=== PATIENT | female | born 1970 | race African-American/Black ===

== ENCOUNTER 2016-07-24 17:19 | Emergency (ER) | payer OTHER ==
[~2016-07-24] VITALS: Ht 160 cm; Wt 86.2 kg
[2016-07-24] MEDS ORDERED: NS 1,000 ML IV ONE (18:15)
[2016-07-24 18:45] LABS: BASO % 0.7 % (0.0-1.0); EOS # 0.3 K/mm3 (0.0-0.50); EOS % 5.2 % (0.0-3.0); LARGE UNSTAINED CELL # 0.2 K/mm3 (0.0-0.4); LYMPH # 1.7 K/mm3 (1.5-4.5); LYMPH % 31.5 % (24.0-44.0); MEAN CORPUSCULAR HEMOGLOBIN 29.3 pg (27.0-33.0); MEAN CORPUSCULAR VOLUME 91.7 fl (80.0-96.0); MONO # 0.3 K/mm3 (0.0-0.8); MONO % 4.9 % (0.0-5.0); NEUTROPHILS % 54.7 % (36.0-66.0); PLATELET COUNT, AUTOMATED 315 k/mm3 (150-450); RED CELL DISTRIBUTION WIDTH 15.2 % (11.5-14.5); WHITE BLOOD COUNT 5.4 K/mm3 (4.0-10.0)
--- NOTE | 2016-07-24 20:30 | REPUSA ---
CLINICAL HISTORY: Heavy bleeding after endometrial biopsy on 07/17/2016. TECHNIQUE: High resolution examination consisting of transabdominal and transvaginal ultrasound perf ormed. FINDINGS: Uterine size is 14.9 x 6.7 x 8.9 cm. AP endometrial thickness is not seen due to penetration limitation/fibroids. Right ovary measures 2.2 x 1.7 x 1.4 cm. Unable to do Doppler due to bowel gas and beam penetration limitation. Left ovary is not visualized. IMPRESSION: Exam limited due to difficulty penetrating fibroids. Endometrial stripe and right ovary are not well seen. Markedly enlarged uterus. Multiple fibroids, largest measures 3.8 x 2.9 x 2.5 cm. Thank you for your kind referral of this patient. We appreciate the opportunity to participate in thi s patient's care.
[2016-07-24 20:50] VITALS: BP 149/88
== END 2016-07-24 21:19 | disposition home or self-care (01) ==
LOC: M ED 17:59
DX: D25.9 Leiomyoma of uterus, unspecified (principal); N92.1 Excessive and frequent menstruation with irregular cycle

== ENCOUNTER 2017-06-04 05:37 | Inpatient (IN) | payer OTHER ==
[2017-06-04 06:27] LABS: HEMATOCRIT 37.4 % (36.0-47.0); HEMOGLOBIN 12.2 g/dl (12.0-16.0); MEAN CORPUSCULAR HGB CONC 32.6 g/dl (32.0-36.5); PLATELET COUNT, AUTOMATED 340 10^3/uL (150-450); RED CELL DISTRIBUTION WIDTH 13.3 % (11.5-14.5); WHITE BLOOD COUNT 6.3 10^3/uL (4.0-10.0)
[2017-06-04] MEDS: LR 1,000 ML IV ×4 (06:40→20:41)
[2017-06-04 06:43] LABS: CONTROL LINE HCG INT CTR LINE PRESENT; HCG, SERUM QUALITATIVE NEGATIVE (NEGATIVE)
[2017-06-04] MEDS ORDERED: BUPIVACAINE LIPOSOME/PF 1.3% 20 ML VIAL (13.3MG/ML)(EXPAREL) As Ordered (07:08)
[2017-06-04] MEDS ORDERED: MIDAZOLAM INJ 2 MG/2 ML VIAL (J2250) As Ordered (07:14)
[2017-06-04] MEDS ORDERED: fentaNYL 250 MCG/5 ML INJECTION (J3010) As Ordered (07:14)
[2017-06-04] MEDS ORDERED: PROPOFOL 200 MG/20 ML VIAL As Ordered (07:14)
[2017-06-04] MEDS ORDERED: LIDOCAINE 2% INJ 100 MG/5 ML SDV (FOR ANES.) As Ordered (07:14)
[2017-06-04] MEDS ORDERED: ROCURONIUM BROMIDE 50 MG/5 ML VIAL As Ordered (07:14)
[2017-06-04] MEDS ORDERED: GLYCOPYRROLATE INJ 0.2 MG/ML 2 ML VIAL As Ordered (07:53)
[2017-06-04] MEDS ORDERED: ONDANSETRON 4MG/2ML VIAL (J2405) As Ordered (07:53)
[2017-06-04] MEDS ORDERED: NEOSTIGMINE 10 MG/10 ML VIAL (J2710) As Ordered (07:53)
[2017-06-04] MEDS ORDERED: HYDROmorphone HCL 2 MG/ML 1ML VIAL (J1170) As Ordered (07:53)
[2017-06-04] MEDS ORDERED: dexameTHASONE 4 MG/ML 1ML VIAL (J1100) As Ordered (07:53)
[2017-06-04] MEDS ORDERED: KETOROLAC 60 MG/2 ML VIAL (J1885) As Ordered (07:53)
[2017-06-04] MEDS ORDERED: ePHEDrine SULFATE 25 MG/5 ML(5MG/ML) SYRINGE As Ordered (07:57)
[2017-06-04] MEDS ORDERED: PHENYLephrine HCL 500 MCG/5 ML (100MCG/ML) SYRINGE (J2370) As Ordered (08:15)
[2017-06-04] MEDS: METHYLENE BLUE 0.5% (5MG/ML) 10 ML AMP (PROVAYBLUE)(Q9968 PER 1MG) As Ordered (09:21)
[2017-06-04] MEDS ORDERED: ESMOLOL INJ 100MG/10ML VIAL As Ordered (09:26)
[2017-06-04] MEDS ORDERED: SEVOFLURANE INHAL SOLN 250 ML BTL As Ordered (09:28)
[2017-06-04] MEDS ORDERED: fentaNYL 100 MCG/2 ML INJECTION (J3010) As Ordered (10:49)
[2017-06-04] MEDS: ceFAZolin 2 GM/D5W 50 ML IV BAG (J0690 PER 500MG) As Ordered (11:00)
[2017-06-04] MEDS ORDERED: METOCLOPRAMIDE INJ 10MG/2ML VIAL (J2765) IV (12:15)
[2017-06-04] MEDS ORDERED: fentaNYL 100 MCG/2 ML INJECTION (J3010) IV (12:15)
[2017-06-04] MEDS ORDERED: ONDANSETRON 4MG/2ML VIAL (J2405) IV ×2 (12:15→13:15)
[2017-06-04 12:23] LABS: HEMATOCRIT 28.7 % (36.0-47.0); HEMOGLOBIN 9.3 g/dl (12.0-16.0); MEAN CORPUSCULAR HEMOGLOBIN 29.5 pg (27.0-33.0); MEAN CORPUSCULAR HGB CONC 32.4 g/dl (32.0-36.5); MEAN CORPUSCULAR VOLUME 91.1 fl (80.0-96.0); PLATELET COUNT, AUTOMATED 272 10^3/uL (150-450); RED BLOOD COUNT 3.15 10^6/uL (4.00-5.40); RED CELL DISTRIBUTION WIDTH 13.4 % (11.5-14.5); WHITE BLOOD COUNT 10.8 10^3/uL (4.0-10.0)
[2017-06-04] MEDS: PERCOCET 5MG/325MG TAB PO ×3 (13:12→22:02)
[2017-06-04] MEDS ORDERED: PERCOCET 5MG/325MG TAB PO (13:15)
[2017-06-04] MEDS ORDERED: PROMETHAZINE 25 MG TAB PO (13:15)
[2017-06-04] MEDS: KETOROLAC 30 MG/ML VIAL (J1885) IV ×2 (14:41→20:41)
[2017-06-04] MEDS: DOCUSATE SODIUM 100 MG CAP PO (20:40)
[2017-06-05] MEDS: MORPHINE 4 MG/ML 1ML VIAL (J2270) IV (01:17)
[2017-06-05] MEDS: KETOROLAC 30 MG/ML VIAL (J1885) IV ×2 (02:39→09:23)
[2017-06-05] MEDS: LR 1,000 ML IV ×2 (05:28→17:27)
[2017-06-05] MEDS: PERCOCET 5MG/325MG TAB PO ×4 (05:33→21:34)
[2017-06-05 07:14] LABS: BASO % 0.1 % (0.0-1.0); HEMATOCRIT 21.9 % (36.0-47.0); IMMATURE GRANULOCYTE % 0.3 % (0-3.0); LYMPH # 1.3 10^3/uL (1.5-4.5); LYMPH % 14.7 % (24.0-44.0); MEAN CORPUSCULAR HEMOGLOBIN 29.9 pg (27.0-33.0); MEAN CORPUSCULAR HGB CONC 32.9 g/dl (32.0-36.5); MEAN CORPUSCULAR VOLUME 90.9 fl (80.0-96.0); MONO # 0.7 10^3/uL (0.0-0.8); MONO % 7.9 % (0.0-5.0); PLATELET COUNT, AUTOMATED 226 10^3/uL (150-450); RED BLOOD COUNT 2.41 10^6/uL (4.00-5.40); RED CELL DISTRIBUTION WIDTH 13.4 % (11.5-14.5); WHITE BLOOD COUNT 9.1 10^3/uL (4.0-10.0)
[2017-06-05 07:20] LABS: HEMOGLOBIN 7.2 g/dl (12.0-16.0)
[2017-06-05] MEDS: DOCUSATE SODIUM 100 MG CAP PO ×2 (09:23→20:04)
[2017-06-05] MEDS: NS 1,000 ML IV (12:25)
[2017-06-05] MEDS: diphenhydrAMINE 25 MG CAP PO (12:26)
[2017-06-05 14:44] LABS: IMMEDIATE SPIN CROSSMATCH 1 2
[2017-06-05] MEDS: IBUPROFEN 800 MG TAB PO (17:27)
[2017-06-05 20:08] LABS: HEMATOCRIT 28.4 % (36.0-47.0); HEMOGLOBIN 9.2 g/dl (12.0-16.0); MEAN CORPUSCULAR HEMOGLOBIN 29.4 pg (27.0-33.0); MEAN CORPUSCULAR HGB CONC 32.4 g/dl (32.0-36.5); MEAN CORPUSCULAR VOLUME 90.7 fl (80.0-96.0); PLATELET COUNT, AUTOMATED 197 10^3/uL (150-450); RED BLOOD COUNT 3.13 10^6/uL (4.00-5.40); RED CELL DISTRIBUTION WIDTH 14.3 % (11.5-14.5); WHITE BLOOD COUNT 8.1 10^3/uL (4.0-10.0)
[2017-06-06] MEDS: LR 1,000 ML IV ×2 (00:44→06:17)
[2017-06-06] MEDS: IBUPROFEN 800 MG TAB PO ×3 (00:44→16:32)
[2017-06-06] MEDS: PERCOCET 5MG/325MG TAB PO ×3 (05:45→17:13)
[2017-06-06] MEDS: DOCUSATE SODIUM 100 MG CAP PO (08:01)
== END 2017-06-06 18:55 | disposition home or self-care (01) | DRG 743 ==
LOC: M OR 05:37 → M PED 13:48
PROC: 0UT90ZZ Resection of Uterus, Open Approach (ICD-10-PCS; principal; 2017-06-04 07:30)
PROC: 0UTC0ZZ Resection of Cervix, Open Approach (ICD-10-PCS; 2017-06-04 07:30)
PROC: 0UT00ZZ Resection of Right Ovary, Open Approach (ICD-10-PCS; 2017-06-04 07:30)
PROC: 0UT70ZZ Resection of Bilateral Fallopian Tubes, Open Approach (ICD-10-PCS; 2017-06-04 07:30)
PROC: 30253N1 (ICD-10-PCS; 2017-06-04 07:30)
DX: D25.1 Intramural leiomyoma of uterus (principal); N92.1 Excessive and frequent menstruation with irregular cycle; D64.9 Anemia, unspecified

== ENCOUNTER → 2017-08-01 | Outpatient (REF) | payer OTHER ==
[2017-08-01 13:30] LABS: APPEARANCE, URINE CLEAR (CLEAR); BACTERIA, URINE AUTO NEGATIVE (NEGATIVE); BILIRUBIN, URINE AUTO NEGATIVE (NEGATIVE); BLOOD, URINE BLOOD NEGATIVE (NEGATIVE); COLOR, URINE STRAW (YELLOW); GLUCOSE, URINE (UA) AUTO NEGATIVE (NEGATIVE); KETONE, URINE AUTO NEGATIVE (NEGATIVE); LEUKOCYTE ESTERASE, URINE AUTO NEGATIVE (NEGATIVE); NITRITE, URINE AUTO NEGATIVE (NEGATIVE); PROTEIN, URINE AUTO NEGATIVE (NEGATIVE); RBC, URINE AUTO 0 /HPF (0-3); SPECIFIC GRAVITY URINE AUTO 1.009 (1.002-1.035); SQUAMOUS EPITHELIAL CELL UR AU 0 /HPF (0-6); UROBILINOGEN, URINE AUTO 0.2 mg/dL (0.0-2.0); WBC, URINE AUTO 0 /HPF (0-3)
== END ==
LOC: M SMT 13:02
DX: R32 Unspecified urinary incontinence (principal)
CPT/HCPCS: 81001

== ENCOUNTER 2017-09-23 13:28 | Day surgery (SDC) | payer OTHER ==
[2017-09-23] MEDS ORDERED: LR 1,000 ML IV ×2 (13:45→18:15)
[2017-09-23] MEDS ORDERED: MIDAZOLAM INJ 2 MG/2 ML VIAL (J2250) As Ordered (16:48)
[2017-09-23] MEDS ORDERED: fentaNYL 100 MCG/2 ML INJECTION (J3010) As Ordered (16:49)
[2017-09-23] MEDS ORDERED: PROPOFOL 200 MG/20 ML VIAL As Ordered (16:49)
[2017-09-23] MEDS: CONRAY-60 60% 50ML VIAL (Q9961) As Ordered (17:26)
[2017-09-23] MEDS ORDERED: dexameTHASONE 4 MG/ML 1ML VIAL (J1100) As Ordered (17:27)
[2017-09-23] MEDS ORDERED: ONDANSETRON 4MG/2ML VIAL (J2405) As Ordered (17:27)
[2017-09-23] MEDS ORDERED: METOCLOPRAMIDE INJ 10MG/2ML VIAL (J2765) As Ordered (17:27)
[2017-09-23] MEDS ORDERED: fentaNYL 100 MCG/2 ML INJECTION (J3010) IV (18:15)
[2017-09-23] MEDS ORDERED: METOCLOPRAMIDE INJ 10MG/2ML VIAL (J2765) IV (18:15)
[2017-09-23] MEDS ORDERED: MEPERIDINE INJ 25 MG/ML VIAL (J2175) IV (18:15)
[2017-09-23] MEDS ORDERED: PERCOCET 5MG/325MG TAB PO (18:15)
[2017-09-23] MEDS ORDERED: ONDANSETRON 4MG/2ML VIAL (J2405) IV (18:15)
== END 2017-09-23 19:25 | disposition home or self-care (01) ==
LOC: M SDC 13:28
DX: N82.0 Vesicovaginal fistula (principal); K21.9 Gastro-esophageal reflux disease without esophagitis; Z79.899 Other long term (current) drug therapy
CPT/HCPCS: 52005

== ENCOUNTER 2017-11-11 06:16 | Inpatient (IN) | payer OTHER ==
[~2017-11-11 06:16] MED LIST: LIDOCAINE 1% MDV 20ML VIAL SQ
[2017-11-11] MEDS ORDERED: LR 1,000 ML IV (06:30)
[2017-11-11] MEDS ORDERED: fentaNYL 250 MCG/5 ML INJECTION (J3010) As Ordered (07:09)
[2017-11-11] MEDS: CONRAY-60 60% 50ML VIAL (Q9961) As Ordered (07:10)
[2017-11-11] MEDS ORDERED: MIDAZOLAM INJ 2 MG/2 ML VIAL (J2250) As Ordered (07:10)
[2017-11-11] MEDS ORDERED: LIDOCAINE 2% INJ 100 MG/5 ML SDV (FOR ANES.) As Ordered (07:11)
[2017-11-11] MEDS ORDERED: ROCURONIUM BROMIDE 50 MG/5 ML VIAL As Ordered ×2 (07:11→08:53)
[2017-11-11] MEDS ORDERED: PROPOFOL 200 MG/20 ML VIAL As Ordered ×2 (07:11→10:11)
[2017-11-11] MEDS ORDERED: ONDANSETRON 4MG/2ML VIAL (J2405) As Ordered ×2 (07:14→11:02)
[2017-11-11] MEDS ORDERED: dexameTHASONE 4 MG/ML 1ML VIAL (J1100) As Ordered ×2 (07:14)
[2017-11-11] MEDS ORDERED: HYDROmorphone HCL 2 MG/ML 1ML VIAL (J1170) As Ordered (08:11)
[2017-11-11] MEDS ORDERED: GLYCOPYRROLATE INJ 0.2 MG/ML 2 ML VIAL As Ordered (09:26)
[2017-11-11] MEDS ORDERED: NEOSTIGMINE 10 MG/10 ML VIAL (J2710) As Ordered (09:26)
[2017-11-11] MEDS: METHYLENE BLUE 0.5% (5MG/ML) 10 ML AMP (PROVAYBLUE)(Q9968 PER 1MG) As Ordered (09:32)
[2017-11-11] MEDS: ESTROGENS VAGINAL CREAM 30GM As Ordered (10:06)
[2017-11-11] MEDS: LR 1,000 ML IV (10:36)
[2017-11-11] MEDS ORDERED: fentaNYL 100 MCG/2 ML INJECTION (J3010) As Ordered (11:03)
[2017-11-11] MEDS: fentaNYL 100 MCG/2 ML INJECTION (J3010) IV ×4 (11:03→11:18)
[2017-11-11] MEDS: PERCOCET 5MG/325MG TAB PO ×2 (11:03→11:33)
[2017-11-11] MEDS ORDERED: PERCOCET 5MG/325MG TAB As Ordered (11:03)
[2017-11-11] MEDS: ONDANSETRON 4MG/2ML VIAL (J2405) IV (11:03)
[2017-11-11] MEDS ORDERED: MORPHINE 4 MG/ML 1ML VIAL/SYRINGE (J2270) IV (11:15)
[2017-11-11] MEDS ORDERED: ONDANSETRON 4MG/2ML VIAL (J2405) IV (11:15)
[2017-11-11] MEDS ORDERED: METOCLOPRAMIDE INJ 10MG/2ML VIAL (J2765) IV (11:15)
[2017-11-11] MEDS ORDERED: MEPERIDINE INJ 25 MG/ML VIAL (J2175) IV (11:15)
[2017-11-11 11:36] LABS: HEMATOCRIT 37.2 % (36.0-47.0); HEMOGLOBIN 12.1 g/dl (12.0-15.5); MEAN CORPUSCULAR HEMOGLOBIN 28.9 pg (27.0-33.0); MEAN CORPUSCULAR HGB CONC 32.5 g/dl (32.0-36.5); PLATELET COUNT, AUTOMATED 286 10^3/uL (150-450); RED BLOOD COUNT 4.18 10^6/uL (4.00-5.40); RED CELL DISTRIBUTION WIDTH 15.2 % (11.5-14.5); WHITE BLOOD COUNT 9.7 10^3/uL (4.0-10.0)
[2017-11-11 11:50] LABS: ANION GAP 6 MEQ/L (8-16); BLOOD UREA NITROGEN 12 MG/DL (7-18); CALCIUM LEVEL 8.7 MG/DL (8.5-10.1); CARBON DIOXIDE LEVEL 29 MEQ/L (21-32); CHLORIDE LEVEL 106 MEQ/L (98-107); CREATININE FOR GFR 1.06 MG/DL (0.55-1.30); GLOMERULAR FILTRATION RATE > 60.0 (>58); GLUCOSE, FASTING 168 MG/DL (70-100); POTASSIUM SERUM 4.3 MEQ/L (3.5-5.1); SODIUM LEVEL 141 MEQ/L (136-145)
[2017-11-11] MEDS: PANTOPRAZOLE 40MG INJ (PROTONIX) (C9113) IV (12:48)
[2017-11-11] MEDS: KETOROLAC 30 MG/ML VIAL (J1885) IV ×2 (12:49→20:47)
[2017-11-11] MEDS: KCL 20MEQ IN D5/0.45NS 1000ML 1,000 ML IV ×2 (12:49→20:46)
[2017-11-11] MEDS: ACETAMINOPHEN 650MG ER TAB (TYLENOL ARTHRITIS) PO ×2 (14:26→22:41)
[2017-11-11] MEDS: oxyCODONE 5MG TAB PO (18:06)
[2017-11-11] MEDS: CIPROFLOXACIN 500 MG TAB PO (18:07)
[2017-11-12] MEDS: oxyCODONE 5MG TAB PO ×4 (01:51→21:57)
[2017-11-12] MEDS: KETOROLAC 30 MG/ML VIAL (J1885) IV (04:29)
[2017-11-12] MEDS: CIPROFLOXACIN 500 MG TAB PO ×2 (05:45→17:34)
[2017-11-12] MEDS: ACETAMINOPHEN 650MG ER TAB (TYLENOL ARTHRITIS) PO ×3 (05:45→21:56)
[2017-11-12 06:58] LABS: HEMOGLOBIN 10.2 g/dl (12.0-15.5); MEAN CORPUSCULAR HEMOGLOBIN 28.9 pg (27.0-33.0); MEAN CORPUSCULAR HGB CONC 32.9 g/dl (32.0-36.5); MEAN CORPUSCULAR VOLUME 87.8 fl (80.0-96.0); PLATELET COUNT, AUTOMATED 245 10^3/uL (150-450); RED BLOOD COUNT 3.53 10^6/uL (4.00-5.40); RED CELL DISTRIBUTION WIDTH 15.2 % (11.5-14.5); WHITE BLOOD COUNT 8.7 10^3/uL (4.0-10.0)
[2017-11-12 07:15] LABS: ANION GAP 7 MEQ/L (8-16); BLOOD UREA NITROGEN 7 MG/DL (7-18); CALCIUM LEVEL 8.2 MG/DL (8.5-10.1); CARBON DIOXIDE LEVEL 27 MEQ/L (21-32); CHLORIDE LEVEL 106 MEQ/L (98-107); CREATININE FOR GFR 0.94 MG/DL (0.55-1.30); GLOMERULAR FILTRATION RATE > 60.0 (>58); GLUCOSE, FASTING 148 MG/DL (70-100); POTASSIUM SERUM 4.3 MEQ/L (3.5-5.1); SODIUM LEVEL 140 MEQ/L (136-145)
[2017-11-12] MEDS: PANTOPRAZOLE 40MG INJ (PROTONIX) (C9113) IV (08:25)
[2017-11-12] MEDS: KCL 20MEQ IN D5/0.45NS 1000ML 1,000 ML IV ×2 (08:26→17:00)
[2017-11-13] MEDS: KCL 20MEQ IN D5/0.45NS 1000ML 1,000 ML IV (03:00)
[2017-11-13] MEDS: CIPROFLOXACIN 500 MG TAB PO (06:26)
[2017-11-13] MEDS: ACETAMINOPHEN 650MG ER TAB (TYLENOL ARTHRITIS) PO (06:26)
[2017-11-13 06:39] LABS: CREATININE BF 0.9 MG/DL (NOT ESTABLISHED); SOURCE, BODY FLUID CREATININE OTHER
[2017-11-13 07:50] LABS: HEMATOCRIT 32.1 % (36.0-47.0); MEAN CORPUSCULAR HEMOGLOBIN 28.3 pg (27.0-33.0); MEAN CORPUSCULAR HGB CONC 31.2 g/dl (32.0-36.5); MEAN CORPUSCULAR VOLUME 90.9 fl (80.0-96.0); PLATELET COUNT, AUTOMATED 236 10^3/uL (150-450); RED BLOOD COUNT 3.53 10^6/uL (4.00-5.40); RED CELL DISTRIBUTION WIDTH 15.6 % (11.5-14.5); WHITE BLOOD COUNT 6.6 10^3/uL (4.0-10.0)
[2017-11-13 08:02] LABS: ANION GAP 6 MEQ/L (8-16); BLOOD UREA NITROGEN 11 MG/DL (7-18); CALCIUM LEVEL 8.1 MG/DL (8.5-10.1); CARBON DIOXIDE LEVEL 30 MEQ/L (21-32); CHLORIDE LEVEL 108 MEQ/L (98-107); CREATININE FOR GFR 1.05 MG/DL (0.55-1.30); GLOMERULAR FILTRATION RATE > 60.0 (>58); GLUCOSE, FASTING 90 MG/DL (70-100); POTASSIUM SERUM 4.3 MEQ/L (3.5-5.1); SODIUM LEVEL 144 MEQ/L (136-145)
[2017-11-13] MEDS: PANTOPRAZOLE 40MG INJ (PROTONIX) (C9113) IV (09:41)
== END 2017-11-13 14:00 | disposition home or self-care (01) | DRG 747 ==
LOC: M OR 06:16 → M PED 12:25
PROC: 0UQG4ZZ Repair Vagina, Percutaneous Endoscopic Approach (ICD-10-PCS; principal; 2017-11-11 07:30)
PROC: 0TQB4ZZ Repair Bladder, Percutaneous Endoscopic Approach (ICD-10-PCS; 2017-11-11 07:30)
PROC: 8E0W4CZ Robotic Assisted Procedure of Trunk Region, Percutaneous Endoscopic Approach (ICD-10-PCS; 2017-11-11 07:30)
DX: N82.0 Vesicovaginal fistula (principal)

== ENCOUNTER → 2017-12-23 | Outpatient (CLI) | payer OTHER ==
[~2017-12-23] MED LIST changes: +CYSTO-CONRAY II 17.2% 250ML VIAL (Q9958) As Ordered; -LIDOCAINE 1% MDV 20ML VIAL SQ
== END ==
LOC: M RADPRO 08:54
DX: N82.0 Vesicovaginal fistula (principal); Z79.899 Other long term (current) drug therapy
CPT/HCPCS: 51600